=== PATIENT | male | born 1970 | race Caucasian/White ===

== ENCOUNTER 2016-05-27 09:16 | Emergency (ER) | payer OTHER | END 2016-05-27 11:02 | disposition home or self-care (01) | LOC: ER 09:16 | DX: S20.212A Contusion of left front wall of thorax, initial encounter (principal); W22.8XXA Striking against or struck by other objects, initial encounter; Y92.009 Unspecified place in unspecified non-institutional (private) residence as the place of occurrence of the external cause; I10 Essential (primary) hypertension; Z79.899 Other long term (current) drug therapy | CPT/HCPCS: 71250; 93005; 99283-25 ==

== ENCOUNTER 2016-06-01 03:34 | Emergency (ER) | payer OTHER | END 2016-06-01 04:25 | disposition home or self-care (01) | LOC: ER 03:34 | DX: Z04.8 Encounter for examination and observation for other specified reasons (principal); F41.9 Anxiety disorder, unspecified; S20.4 Other and unspecified superficial injuries of back wall of thorax; W34.00XS Accidental discharge from unspecified firearms or gun, sequela | CPT/HCPCS: 71020; 99283 ==

== ENCOUNTER 2016-06-03 14:38 | Emergency (ER) | payer OTHER | END 2016-06-03 22:20 | disposition home or self-care (01) | LOC: ER 14:38 | DX: R20.0 Anesthesia of skin (principal); I10 Essential (primary) hypertension; Z87.11 Personal history of peptic ulcer disease; V89.2XXS Person injured in unspecified motor-vehicle accident, traffic, sequela; Z79.899 Other long term (current) drug therapy | CPT/HCPCS: 73564; 99283-25 ==

== ENCOUNTER 2016-06-11 20:11 | Emergency (ER) | payer OTHER ==
[2016-06-11 21:22] LABS: BASO % 0.2 % (0.2-1.2); EOS # 0.2 10_X3_uL (0.0-0.5); GRAN # 4.2 10_X3_uL (1.8-5.4); GRAN % 73.9 % (34.0-67.9); HEMATOCRIT 39.7 % (40-51); HEMOGLOBIN 13.8 g/dL (13.7-17.5); LYMPH # 0.7 10_X3_uL (1.3-3.6); LYMPH % 12.1 % (21.8-53.1); MEAN CORPUSCULAR HEMOGLOBIN 30.9 pg (27.0-33.0); MEAN CORPUSCULAR HGB CONC 34.8 g/dL (32.0-36.0); MEAN CORPUSCULAR VOLUME 88.8 fL (79-92); MEAN PLATELET VOLUME 11.4 fl (7.5-11.5); MONO # 0.6 10_X3_uL (0.3-0.8); MONO % 10.8 % (5.3-12.2); PLATELET COUNT 141 x10_3/uL (163-337); RED BLOOD COUNT 4.47 x10_6/uL (4.6-6.1); RED CELL DISTRIBUTION WIDTH 12.8 % (11.6-14.4); WHITE BLOOD COUNT 5.6 x10_3/uL (4.2-9.1)
[2016-06-11 21:37] LABS: PH,URINE 6.5 (5.0 - 9.0); URINE BILIRUBIN NEGATIVE (NEGATIVE); URINE BLOOD NEGATIVE (NEGATIVE); URINE GLUCOSE (UA) NORMAL (NORMAL); URINE KETONE NEGATIVE (NEGATIVE); URINE LEUKOCYTE ESTERASE NEGATIVE (NEGATIVE); URINE NITRATE NEGATIVE (NEGATIVE); URINE PROTEIN NEGATIVE (NEGATIVE)
[2016-06-11 21:39] LABS: ALBUMIN 4.5 gm/dL (3.4-5.0); ALKALINE PHOSPHATASE 65 U/L (50-136); ALT/SGPT 38 U/L (7.53-40.17); AST/SGOT 25 U/L (6.66-35.34); BILIRUBIN,TOTAL 0.55 mg/dL (0.0-1.0); CALCIUM 8.9 mg/dL (8.7-10.7); CARBON DIOXIDE 22 mmol/L (21-32); CREATININE 0.7 mg/dL (0.6-1.3); GLUCOSE,RANDOM 121 mg/dL (70-99); POTASSIUM 3.7 mmol/L (3.5-5.1); SODIUM 134 mmol/L (136-145); TOTAL PROTEIN 7.1 gm/dL (6.4-8.2)
[2016-06-11 21:40] LABS: BLOOD UREA NITROGEN 7 mg/dL (7-18)
== END 2016-06-11 21:54 | disposition home or self-care (01) ==
LOC: ER 20:11
PROVIDERS: Internal Medicine
DX: J20.9 Acute bronchitis, unspecified (principal); J02.9 Acute pharyngitis, unspecified; R50.9 Fever, unspecified; I10 Essential (primary) hypertension; K21.9 Gastro-esophageal reflux disease without esophagitis; Z79.899 Other long term (current) drug therapy
CPT/HCPCS: 36415; 71020; 80053; 81003; 83605; 85025; 87040; 87070; 87400; 87880; 99283-25

== ENCOUNTER 2016-12-11 19:23 | Emergency (ER) | payer OTHER | END 2016-12-11 19:57 | disposition home or self-care (01) | LOC: ER 19:23 | DX: S39.011A Strain of muscle, fascia and tendon of abdomen, initial encounter (principal); X50.0XXA Overexertion from strenuous movement or load, initial encounter; Z87.11 Personal history of peptic ulcer disease; I10 Essential (primary) hypertension; Z79.899 Other long term (current) drug therapy | CPT/HCPCS: 99282 ==

== ENCOUNTER → 2016-12-16 | Outpatient (CLI) | payer OTHER ==
[2016-12-16 07:19] LABS: HEMATOCRIT 43.5 % (40-51); HEMOGLOBIN 16.1 g/dL (13.7-17.5); MEAN CORPUSCULAR HEMOGLOBIN 31.1 pg (27.0-33.0); MEAN CORPUSCULAR VOLUME 84.1 fL (79-92); MEAN PLATELET VOLUME 11.1 fl (7.5-11.5); RED BLOOD COUNT 5.17 x10_6/uL (4.6-6.1); RED CELL DISTRIBUTION WIDTH 12.7 % (11.6-14.4); WHITE BLOOD COUNT 8.9 x10_3/uL (4.2-9.1)
[2016-12-16 07:33] LABS: AHDL CHOLESTEROL 37 mg/dL (>40); ALBUMIN 4.9 gm/dL (3.4-5.0); ALKALINE PHOSPHATASE 54 U/L (50-136); ALT/SGPT 21 U/L (7.53-40.17); AST/SGOT 20 U/L (6.66-35.34); BILIRUBIN,DIRECT 0.27 mg/dL (0.0-0.30); CALCIUM 9.1 mg/dL (8.7-10.7); CARBON DIOXIDE 23 mmol/L (21-32); CHOLESTEROL 138 mg/dL (0-200); CREATININE 0.9 mg/dL (0.6-1.3); GLUCOSE,RANDOM 93 mg/dL (70-99); LDL CHOLESTEROL 97 mg/dL (0-99); POTASSIUM 3.7 mmol/L (3.5-5.1); SODIUM 136 mmol/L (136-145); TOTAL PROTEIN 7.8 gm/dL (6.4-8.2); TRIGLYCERIDES 75 mg/dL (30-200)
[2016-12-16 07:34] LABS: BLOOD UREA NITROGEN 20 mg/dL (7-18)
== END ==
LOC: LAB 06:52
PROVIDERS: Family Medicine
DX: Z51.81 Encounter for therapeutic drug level monitoring (principal); R73.9 Hyperglycemia, unspecified; I10 Essential (primary) hypertension; Z79.899 Other long term (current) drug therapy
CPT/HCPCS: 36415; 80053; 80061; 82248; 83036